=== PATIENT | male | born 1975 | race African-American/Black ===

== ENCOUNTER 2018-06-01 22:02 | Emergency (ER) | payer MEDICAID, OTHER ==
--- NOTE | 2018-06-01 22:31 | EDM.PDOC ---
ED HPI GENERAL MEDICAL PROBLEM - General Chief Complaint: Back Pain or Injury Stated Complaint: LOWER BACK PAIN Time Seen by Provider: 06/01/18 22:31 - History of Present Illness INITIAL COMMENTS - FREE TEXT/NARRATIVE: 42-year-old male presents emergency room with back pain. This pain started yesterday. The patient was working at home removing the toilet seat set the old one against the wall and when he went to pick it up he developed sudden low back pain. Patient denies any significant injuries to his back in the past. Patient has not had any loss of bowel or bladder control he has no pain extending down into his legs it is all around his low back . Lower Back Pain Score (Numeric/FACES): 8 - Related Data Allergies Allergy/AdvReac Type Severity Reaction Status Date / Time No Known Allergies Allergy Verified 06/01/18 22:16 Home Meds: Home Meds Cyclobenzaprine [Flexeril] 10 mg PO TID #15 tab 06/02/18 [Rx] Naproxen [Naprosyn] 500 mg PO Q12HR #20 tab 06/02/18 [Rx] ED ROS GENERAL - Review of Systems Review Of Systems: See Below Constitutional: Reports: No Symptoms HEENT: Reports: No Symptoms Respiratory: Reports: No Symptoms Cardiovascular: Reports: No Symptoms GI/Abdominal: Reports: No Symptoms : Reports: No Symptoms ED EXAM,LOWER BACK PAIN/INJURY - Physical Exam Exam: See Below Exam Limited By: No Limitations General Appearance: Alert, No Apparent Distress, Other (Blood pressure was elevated initially but this did come down) Head: Atraumatic, Normocephalic Neck: Normal Inspection, Supple, Non-Tender, Full Range of Motion. No: Lymphadenopathy (L), Lymphadenopathy (R) Respiratory/Chest: No Respiratory Distress, Lungs Clear, Normal Breath Sounds Cardiovascular: Regular Rate, Rhythm, No Edema, No Murmur GI/Abdominal: Normal Bowel Sounds, Soft, Non-Tender, Other (Marked obesity) Back Exam: Muscle Spasm, Paraspinal Tenderness, Other (Marked bilateral muscle spasm much worse on the left distracted straight leg raises are negative). No: Vertebral Tenderness Neurological: Alert, Normal Mood/Affect Course - Vital Signs Last Recorded V/S: Last Vital Signs Temp 36.3 C 06/01/18 22:11 Pulse 97 06/01/18 22:11 Resp 16 06/01/18 22:11 BP 162/109 H 06/01/18 22:11 Pulse Ox 93 L 06/01/18 22:11 - Orders/Labs/Meds Orders: Active Orders 24 hr Category Date Time Status Lumbar Spine 2 or 3V [CR] Stat Exams 06/01/18 23:30 Taken Meds: Medications Discontinued Medications Generic Name Dose Route Start Last Admin Trade Name Miguel PRN Reason Stop Dose Admin Cyclobenzaprine HCl 10 mg 06/01/18 23:22 06/01/18 23:48 Flexeril PO 06/01/18 23:23 10 mg ONETIME ONE Administration Ketorolac Tromethamine 60 mg 06/01/18 23:28 06/01/18 23:47 Toradol IM 06/01/18 23:29 60 mg ONETIME ONE Administration - Re-Assessments/Exams Free Text/Narrative Re-Assessment/Exam: 06/02/18 00:20 Since blood pressure was elevated on admission however one was rechecked it was 147/101 given the pain he was having a did order some Toradol for him and ordered some Flexeril he declined the Flexeril as he has to drive himself home x -ray examination was done which shows no acute fracture dislocation he has loss of lordotic curvature in the lumbar spine he has some degenerative changes noted especially at L3-L4 but he has diffuse [id number] disease throughout he has noticed some improvement with the Toradol. Departure - Departure Time of Disposition: 00:29 Disposition: Home, Self-Care 01 Clinical Impression: Low back strain, Spasm of muscle of lower back - Discharge Information Prescriptions: Naproxen [Naprosyn] 500 mg PO Q12HR #20 tab Cyclobenzaprine [Flexeril] 10 mg PO TID #15 tab Referrals: PCP,None [Primary Care Provider] - Forms: ED Department Discharge Additional Instructions: Return to the emergency room with any questions problems worsening symptoms. Take medications as directed Follow-up at the Hospital clinic on Friday or for recheck [phone] - My Orders Last 24 Hours: My Active Orders 06/01/18 23:30 Lumbar Spine 2 or 3V [CR] Stat - Assessment/Plan Last 24 Hours: My Active Orders 06/01/18 23:30 Lumbar Spine 2 or 3V [CR] Stat
[2018-06-01] MEDS ORDERED: Cyclobenzaprine 10 MG Tab PO ONE (23:22)
[2018-06-01] MEDS ORDERED: Ketorolac 60 MG/2 ML SDV IM ONE (23:28)
--- NOTE | 2018-06-02 08:18 | CR ---
Lumbar Spine : AP and lateral views of the lumbar spine were obtained. Comparison: No previous study. Mild disc space narrowing is noted at L3-L4 with minimal retrolisthesis. Anterior osteophytes are also noted at L3-L4. Other disc spaces and vertebral body heights are maintained. Pedicles are intact. Visualized transverse and spinous processes are intact. Sacroiliac joints are within normal limits. Minimal scoliosis is present. Impression: 1. Degenerative change at L3-L4 as noted above. 2. Minimal scoliosis. Diagnostic code #2
== END 2018-06-02 00:42 | disposition home or self-care (01) ==
LOC: JD.ED 22:02
DX: S39.012A Strain of muscle, fascia and tendon of lower back, initial encounter (principal); M62.830 Muscle spasm of back; X50.1XXA Overexertion from prolonged static or awkward postures, initial encounter; Y92.002 Bathroom of unspecified non-institutional (private) residence as the place of occurrence of the external cause
CPT/HCPCS: 72100; 96372; 99283; A9270; J1885

== ENCOUNTER 2018-07-27 15:20 | Emergency (ER) | payer MEDICAID ==
--- NOTE | 2018-07-27 16:23 | EDM.PDOCBH ---
ED HPI GENERAL MEDICAL PROBLEM - General Chief Complaint: Behavioral/Psych Stated Complaint: MENTAL EVALUATION Time Seen by Provider: 07/27/18 15:25 Source of Information: Reports: Patient History Limitations: Reports: Altered Mental Status - History of Present Illness INITIAL COMMENTS - FREE TEXT/NARRATIVE: 43-year-old male with a reported past psychiatric history of schizophrenia. Patient is poor and unreliable historian. He states that he is being followed by 2 people one in a light blue truck and one in a car. He thinks they are currently in the ER posing as patients and are trying to kill them with guns. He says he will fight for his life if necessary. He states he called 911 several times, LE asked him to come to the ED for evaluation. Informed by nursing staff the patient states he ran here to the hospital. The patient does state that he previously received psychiatric care. States the last time he was on any psychiatric medicines was quite some time ago possibly a year ago. States that he used to take gabapentin, Seroquel, ziprasidone and Xanax. Patient states that he last used drugs probably 3 days ago. - Related Data Allergies Allergy/AdvReac Type Severity Reaction Status Date / Time No Known Allergies Allergy Verified 07/27/18 15:31 Home Meds: Home Meds . [No Known Home Meds] 07/27/18 [History] Past Medical History Neurological History: Reports: Other (See Below) Other Neuro History: [place] Psychiatric History: Reports: Anxiety, Depression, Hallucinations, Schizophrenia - Past Surgical History Musculoskeletal Surgical History: Reports: Other (See Below) Other Musculoskeletal Surgeries/Procedures:: left arm abscess Social & Family History - Family History Family Medical History: Noncontributory - Tobacco Use Smoking Status *Q: Current Every Day Smoker Years of Tobacco use: 9 Packs/Tins Daily: 0.5 - Caffeine Use Caffeine Use: Reports: Coffee, Energy Drinks, Soda - Recreational Drug Use Recreational Drug Use: No ED ROS GENERAL - Review of Systems Review Of Systems: See Below Constitutional: Reports: No Symptoms HEENT: Reports: No Symptoms Respiratory: Reports: No Symptoms Cardiovascular: Reports: No Symptoms GI/Abdominal: Reports: No Symptoms : Reports: No Symptoms Skin: Reports: No Symptoms Neurological: Reports: No Symptoms Psychiatric: Reports: Agitation, Anxiety, Hallucinations ED EXAM, BEHAVIORAL HEALTH - Physical Exam Exam: See Below Exam Limited By: Altered Mental Status General Appearance: Alert, Anxious, Obese Nose: Normal Inspection Throat/Mouth: Normal Inspection Head: Atraumatic, Normocephalic Neck: Normal Inspection Respiratory/Chest: No Respiratory Distress, Lungs Clear, Normal Breath Sounds Cardiovascular: Normal Peripheral Pulses, Regular Rate, Rhythm GI/Abdominal: Normal Bowel Sounds, Soft, Non-Tender Extremities: Normal Inspection, Normal Range of Motion, Non-Tender Neurological: Alert, CN II-XII Intact, No Motor/Sensory Deficits, Oriented x 3 Psychiatric: Restless, Poor Eye Contact (paranoid delusions, visual hallucinations), Uncooperative, Paranoid Thoughts, Other (paranoid delusions, people trying to kill him, disorganized behavior) Skin Exam: Warm, Dry, Intact COURSE, BEHAVIORAL HEALTH COMP - Course Vital Signs: Last Vital Signs Temp 35.9 C 07/27/18 15:27 Pulse 125 H 07/27/18 15:27 Resp 20 07/27/18 15:27 BP 155/120 H 07/27/18 15:27 Pulse Ox 96 07/27/18 15:27 Orders, Labs, Meds: Active Orders 24 hr Category Date Time Status DRUG SCREEN, URINE [URCHEM] Stat Lab 07/27/18 16:10 Ordered Laboratory Tests 07/27/18 07/27/18 07/27/18 Range/Units 15:50 15:50 15:50 WBC 6.06 (4.23-9.07) K/mm3 RBC 5.79 (4.63-6.08) M/mm3 Hgb 17.7 H (13.7-17.5) gm/L Hct 51.9 H (40.1-51.0) % MCV 89.6 (79.0-92.2) fl MCH 30.6 (25.7-32.2) pg MCHC 34.1 (32.2-35.5) g/dl RDW Std Deviation 46.3 H (35.1-43.9) fL Plt Count 270 (163-337) K/mm3 MPV 9.2 L (9.4-12.3) fl Neut % (Auto) 51.4 (34.0-67.9) % Lymph % (Auto) 34.3 (21.8-53.1) % [place] % (Auto) 12.0 (5.3-12.2) % Eos % (Auto) 1.8 (0.8-7.0) Baso % (Auto) 0.3 (0.1-1.2) % Neut # (Auto) 3.11 (1.78-5.38) K/mm3 Lymph # (Auto) 2.08 (1.32-3.57) K/mm3 [place] # (Auto) 0.73 (0.30-0.82) K/mm3 Eos # (Auto) 0.11 (0.04-0.54) K/mm3 Baso # (Auto) 0.02 (0.01-0.08) K/mm3 Sodium 143 (136-145) mEq/L Potassium 3.4 L (3.5-5.1) mEq/L Chloride 106 (98-107) mEq/L Carbon Dioxide 25 (21-32) mEq/L Anion Gap 15.4 H (5-15) BUN 10 (7-18) mg/dL Creatinine 1.4 H (0.7-1.3) mg/dL Est Cr Clr Drug Dosing 80.48 mL/min Estimated GFR (MDRD) > 60 (>60) mL/min BUN/Creatinine Ratio 7.1 L (14-18) Glucose 107 H (74-106) mg/dL Calcium 9.4 (8.5-10.1) mg/dL Total Bilirubin 0.9 (0.2-1.0) mg/dL AST 32 (15-37) U/L ALT 96 H (16-63) U/L Alkaline Phosphatase 46 (46-116) U/L Total Protein 8.4 H (6.4-8.2) g/dl Albumin 4.3 (3.4-5.0) g/dl Globulin 4.1 gm/dL Albumin/Globulin Ratio 1.1 (1-2) Salicylates 4.6 (2.8-20) mg/dL Urine Opiates Screen (NEGATIVE) Ur Buprenorphine Scrn (NEGATIVE) Ur Oxycodone Screen (NEGATIVE) Urine Methadone Screen (NEGATIVE) Ur Propoxyphene Screen (NEGATIVE) Acetaminophen 0 L (10-30) ug/mL Ur Barbiturates Screen (NEGATIVE) Ur Tricyclics Screen (NEGATIVE) Ur Phencyclidine Scrn (NEGATIVE) Ur Amphetamine Screen (NEGATIVE) U Methamphetamines Scrn (NEGATIVE) U Benzodiazepines Scrn (NEGATIVE) U Cocaine Metab Screen (NEGATIVE) U Marijuana (THC) Screen (NEGATIVE) Ethyl Alcohol 0.00 (0.00) gm% 07/27/18 Range/Units 16:10 WBC (4.23-9.07) K/mm3 RBC (4.63-6.08) M/mm3 Hgb (13.7-17.5) gm/L Hct (40.1-51.0) % MCV (79.0-92.2) fl MCH (25.7-32.2) pg MCHC (32.2-35.5) g/dl RDW Std Deviation (35.1-43.9) fL Plt Count (163-337) K/mm3 MPV (9.4-12.3) fl Neut % (Auto) (34.0-67.9) % Lymph % (Auto) (21.8-53.1) % [place] % (Auto) (5.3-12.2) % Eos % (Auto) (0.8-7.0) Baso % (Auto) (0.1-1.2) % Neut # (Auto) (1.78-5.38) K/mm3 Lymph # (Auto) (1.32-3.57) K/mm3 [place] # (Auto) (0.30-0.82) K/mm3 Eos # (Auto) (0.04-0.54) K/mm3 Baso # (Auto) (0.01-0.08) K/mm3 Sodium (136-145) mEq/L Potassium (3.5-5.1) mEq/L Chloride (98-107) mEq/L Carbon Dioxide (21-32) mEq/L Anion Gap (5-15) BUN (7-18) mg/dL Creatinine (0.7-1.3) mg/dL Est Cr Clr Drug Dosing mL/min Estimated GFR (MDRD) (>60) mL/min BUN/Creatinine Ratio (14-18) Glucose (74-106) mg/dL Calcium (8.5-10.1) mg/dL Total Bilirubin (0.2-1.0) mg/dL AST (15-37) U/L ALT (16-63) U/L Alkaline Phosphatase (46-116) U/L Total Protein (6.4-8.2) g/dl Albumin (3.4-5.0) g/dl Globulin gm/dL Albumin/Globulin Ratio (1-2) Salicylates (2.8-20) mg/dL Urine Opiates Screen Negative (NEGATIVE) Ur Buprenorphine Scrn Negative (NEGATIVE) Ur Oxycodone Screen Negative (NEGATIVE) Urine Methadone Screen Negative (NEGATIVE) Ur Propoxyphene Screen Negative (NEGATIVE) Acetaminophen (10-30) ug/mL Ur Barbiturates Screen Negative (NEGATIVE) Ur Tricyclics Screen Negative (NEGATIVE) Ur Phencyclidine Scrn Negative (NEGATIVE) Ur Amphetamine Screen Presumptive positive H (NEGATIVE) U Methamphetamines Scrn Presumptive positive H (NEGATIVE) U Benzodiazepines Scrn Negative (NEGATIVE) U Cocaine Metab Screen Negative (NEGATIVE) U Marijuana (THC) Screen Negative (NEGATIVE) Ethyl Alcohol (0.00) gm% Medications Discontinued Medications Generic Name Dose Route Start Last Admin Trade Name Freq PRN Reason Stop Dose Admin Haloperidol Lactate Confirm 07/27/18 19:17 Haldol Administered 07/27/18 19:18 Dose 5 mg .ROUTE .STK-MED ONE Lorazepam Confirm 07/27/18 19:23 Ativan Administered 07/27/18 19:24 Dose 2 mg .ROUTE .STK-MED ONE Midazolam HCl Confirm 07/27/18 19:18 Versed 5 Mg/Ml Administered 07/27/18 19:19 Dose 25 mg .ROUTE .STK-MED ONE Re-Assessment/Re-Exam: 43 y M self-reported hx of schizophrenia presenting with paranoid delusions. On initial exam the patient was hiding in the corner of the room behind the door. He was slightly tachycardic with regular rhythm. Physical exam unremarkable otherwise. He did have paranoid delusions of people trying to kill him, that they followed him into the ED posing as patients and that he would try to hurt them "if they make a move." CMP and CBC notable only for mild Cr elevation likely from dehydration. ASA, APAP levels negative. Negative etoh. Urine drug screen positive for amphetamines only. I feel the patient poses a danger to others in his current paranoid state and as such should be admitted for emergent psychiatric stabilization as an inpatient. Spoke with Dr. Parker at [facility] who had an open bed and would accept the transfer should the patient be able to come over in a timely transfer. Necessary forms filled out and faxed over. Awaiting [facility] Department transportation. [facility]'s department arrived and the patient became more agitated, making threatening comments and gestures to staff and law enforcement. He remained acutely psychotic and posed a clear danger to others. He refused to go to [place] because he believed the people trying to kill him would try to kill him there. Haldol and ativan IM were drawn up but the patient complied with law enforcement and was placed in their vehicle. Corrections were made to paperwork and refaxed to [facility]. Departure - Departure Time of Disposition: 18:28 Disposition: DC/Tfer to Psych Hosp/Unit 65 Condition: Fair Clinical Impression: Paranoid delusion Psychosis Qualifiers: Psychosis type: other Qualified Code(s): F28 - Other psychotic disorder not due to a substance or known physiological condition - Discharge Information *PRESCRIPTION DRUG MONITORING PROGRAM REVIEWED*: No *COPY OF PRESCRIPTION DRUG MONITORING REPORT IN PATIENT MATHEW: No Referrals: PCP,None [Primary Care Provider] - Forms: Interfacility Transfer EMTALA - My Orders Last 24 Hours: My Active Orders 07/27/18 16:10 DRUG SCREEN, URINE [URCHEM] Stat - Assessment/Plan Last 24 Hours: My Active Orders 07/27/18 16:10 DRUG SCREEN, URINE [URCHEM] Stat
[2018-07-27 16:30] LABS: ACETAMINOPHEN 0 ug/mL (10-30)
[2018-07-27] MEDS ORDERED: Haloperidol Lactate 5 MG/ML SDV ONE (19:17)
[2018-07-27] MEDS ORDERED: Midazolam 5 MG/ML 5 ML MDV ONE (19:18)
[2018-07-27] MEDS ORDERED: LORazepam 2 MG/ML SDV ONE (19:23)
== END 2018-07-27 20:00 ==
LOC: JD.ED 15:20
DX: F22 Delusional disorders (principal); F28 Other psychotic disorder not due to a substance or known physiological condition; F17.210 Nicotine dependence, cigarettes, uncomplicated
CPT/HCPCS: 36415; 80053; 80306; 85025; 99285; G0480

== ENCOUNTER 2019-04-03 13:26 | Emergency (ER) | payer SELFPAY ==
[2019-04-03] MEDS ORDERED: Lidocaine 1% 50 ML MDV INJECT ONE (13:39)
[2019-04-03] MEDS ORDERED: Bupivacaine 0.25% 10 ML SDV INJECT ONE (13:39)
[2019-04-03] MEDS ORDERED: Diphtheria,Pertussis(Acell),Tetanus Vaccine 0.5 ML Syringe IM ONE (13:40)
[2019-04-03] MEDS ORDERED: Bupivacaine 0.5%/EPINEPHrine 1:200,000 30 ML SDV INJECT ONE (14:01)
[2019-04-03] MEDS ORDERED: Bupivacaine 0.5% 10 ML SDV INJECT ONE (14:04)
--- NOTE | 2019-04-03 14:26 | EDM.PDOC ---
ED HPI GENERAL MEDICAL PROBLEM - General Chief Complaint: Laceration Stated Complaint: LEFT THUMB INJURY Time Seen by Provider: 04/03/19 13:43 Source of Information: Reports: Patient History Limitations: Reports: No Limitations - History of Present Illness INITIAL COMMENTS - FREE TEXT/NARRATIVE: 43-year-old male presents for evaluation and treatment of an injury to the left thumb. Injury occurred prior to arrival in the ER. Patient reports that his thumb was caught in a winch. He was helping someone move. He states that he pulled on the thumb out causing a laceration to the left distal thumb. Reports numbness and tingling associated with the area. Reports Significant pain. Decreased ROM due to pain and swelling. He is unaware of his last tetanus. Patient is right-handed. Onset: Today, Sudden Location: Reports: Upper Extremity, Left Left Hand Pain Score (Numeric/FACES): 10 - Related Data Allergies Allergy/AdvReac Type Severity Reaction Status Date / Time No Known Allergies Allergy Verified 04/03/19 13:37 Home Meds: Home Meds . [No Known Home Meds] 07/27/18 [History] Past Medical History - Past Health History Medical/Surgical History: Denies Medical/Surgical History Neurological History: Reports: Other (See Below) Other Neuro History: [place] Psychiatric History: Reports: Anxiety, Depression, Hallucinations, Schizophrenia - Past Surgical History Musculoskeletal Surgical History: Reports: Other (See Below) Other Musculoskeletal Surgeries/Procedures:: left arm abscess Social & Family History - Family History Family Medical History: Noncontributory - Tobacco Use Smoking Status *Q: Heavy Tobacco Smoker Years of Tobacco use: 3 Packs/Tins Daily: 1 - Caffeine Use Caffeine Use: Reports: None ED ROS GENERAL - Review of Systems Review Of Systems: See Below Musculoskeletal: Reports: Hand Pain (left hand thumb) Skin: Reports: Wound (left hand thumb) Neurological: Reports: Numbness (left thumb), Tingling (left thumb) ED EXAM, SKIN/RASH Exam: See Below Exam Limited By: No Limitations General Appearance: Alert, WD/WN, Moderate Distress, Obese Respiratory/Chest: No Respiratory Distress Cardiovascular: Normal Peripheral Pulses Peripheral Pulses: 2+: Radial (L) Extremities: Other (lacertion to the left distal thumb on the radial side of the distal left hand) Neurological: Alert, Oriented, Normal Cognition Psychiatric: Normal Affect, Normal Mood Skin: Warm, Dry, Normal Color Location, Skin: Upper Extremity, Left Characteristics: Other (1cm laceration to juan jose left hand distal ventral thumb, 3cm laceration to juan jose left hand dital thumb entending throught the nail bed) ED SKIN PROCEDURES - Laceration/Wound Repair Left Distal Ventral Digit - 1st (Thumb) Lac/Wound length In cm: 1 Appearance: Superficial, Linear, Mildly Contaminated Distal NVT: Neuro & Vascular Intact, No Tendon Injury Anesthetic Type: Local Local Anesthesia - Lidocaine (Xylocaine): 1% Plain Local Anesthesia - Bupivicaine (Marcaine): 0.5% Plain Local Anesthetic Volume: 1cc Skin Prep: Chlorhexidine (Hibiciens), Saline, Sterile Drape Closed with: Sutures Suture Size: 4-0 # of Sutures: 3 Suture Type: Silk, Interrupted, Simple Sterile Dressing Applied: Nurse Tetanus Status Addressed: Yes Complications: No Left Lateral Distal Digit - 1st (Thumb) Lac/Wound length In cm: 3 Appearance: Subcutaneous, Irregular, Mildly Contaminated Distal NVT: Neuro & Vascular Intact, No Tendon Injury Anesthetic Type: Digital Local Anesthesia - Lidocaine (Xylocaine): 1% Plain Local Anesthesia - Bupivicaine (Marcaine): 0.5% Plain Local Anesthetic Volume: Other (6cc) Skin Prep: Chlorhexidine (Hibiciens), Saline, Sterile Drape Closed with: Sutures Suture Size: 4-0 # of Sutures: 9 Suture Type: Silk, Interrupted, Simple Sterile Dressing Applied: Nurse Tetanus Status Addressed: Yes Complications: No Course - Vital Signs Last Recorded V/S: Last Vital Signs Temp 97.7 F 04/03/19 13:40 Pulse 100 04/03/19 13:40 Resp 20 04/03/19 13:40 BP 106/69 04/03/19 13:40 Pulse Ox 100 04/03/19 13:40 - Orders/Labs/Meds Orders: Active Orders 24 hr Category Date Time Status Vaccines to be Administered [RC] PER UNIT ROUTINE Care 04/03/19 13:40 Active Fingers Thumb Lt FA [CR] Stat Exams 04/03/19 13:40 Taken Meds: Medications Discontinued Medications Generic Name Dose Route Start Last Admin Trade Name Freq PRN Reason Stop Dose Admin Bupivacaine HCl 10 ml 04/03/19 14:04 04/03/19 14:05 Sensorcaine-Mpf 0.5% INJECT 04/03/19 14:05 1 ml ONETIME ONE Administration Bupivacaine HCl/Epinephrine Bitart 30 ml 04/03/19 14:01 04/03/19 14:05 Marcaine 0.5%/Epinephrine 1:200,000 INJECT 04/03/19 14:02 Not Given ONETIME ONE Diphtheria/Tetanus/Acell Pertussis 0.5 ml 04/03/19 13:40 04/03/19 13:56 Adacel IM 04/03/19 13:41 0.5 ml .ONCE ONE Administration Lidocaine HCl 50 ml 04/03/19 13:39 04/03/19 13:59 Xylocaine 1% INJECT 04/03/19 13:40 50 ml ONETIME ONE Administration - Radiology Interpretation Free Text/Narrative:: xray of the left thumb shows a tuft fracture of the distal phalnex - Re-Assessments/Exams Free Text/Narrative Re-Assessment/Exam: 04/03/19 15:03 Reviewed xray results with the patient. Wound washed and irrigated. Will place on cephalexin as this is an open fracture. 12 sutures placed in total to the 2 wounds. 4 sutures placed through the nail to help hold the nail in place. Tetanus up dated. Will discharge home at this time, discharge instructions as documented. Departure - Departure Time of Disposition: 15:09 Disposition: Home, Self-Care 01 Condition: Fair Clinical Impression: Laceration, Open fracture of tuft of distal phalanx of finger - Discharge Information *PRESCRIPTION DRUG MONITORING PROGRAM REVIEWED*: No *COPY OF PRESCRIPTION DRUG MONITORING REPORT IN PATIENT MATHEW: No Instructions: Laceration Care, Adult, [id number] Referrals: PCP,None [Primary Care Provider] - Mikey Gutierrez MD [Physician] - Forms: ED Department Discharge Additional Instructions: Percocet 5-325mg tabs 1-2 tabs PO every 4-6 hours prn pain #20 Cephalexin 1 cap PO tid x 7 days Rx given from [facility] Follow-up with ortho this week. Recommend Dr. Gutierrez or Dr. Ba at [place]. Call [phone] Gutierrez. Call [phone] Ba. Your tetanus was updated today. This is good for the next 10 years. Take the cephalexin as prescribed 1 cap PO tid x 7 days. Take OTC tylenol or motrin as needed for pain. Do not take more than 3200mg of ibuprofen from all sources in one day. Do not take more than 4gram of tylenol from all sources in one day. For pain not relieved by tylenol or motrin may take percocet 1-2 tabs PO every 4-6 hours prn pain. Do not drive or operate machinery wihtin 8 hours of taking narcotics. Percocet is habit forming, take as few of these as needed to control your pain. Keep the splint on for protection and immobilization. Have the sutures removed in 10-14 days. Please return to the ER should your symptoms change or worsen. - My Orders Last 24 Hours: My Active Orders 04/03/19 13:40 Vaccines to be Administered [RC] PER UNIT ROUTINE Fingers Thumb Lt FA [CR] Stat - Assessment/Plan Last 24 Hours: My Active Orders 04/03/19 13:40 Vaccines to be Administered [RC] PER UNIT ROUTINE Fingers Thumb Lt FA [CR] Stat
--- NOTE | 2019-04-05 06:35 | CR ---
Left thumb: Three views centered to the left thumb were obtained. Comparison: No prior thumb study. Slightly comminuted tuft fracture is noted within the distal left thumb. Soft tissue swelling is identified. No additional fracture or other bony abnormality is identified. Impression: 1. Tuft fracture with soft tissue swelling. Diagnostic code #3
== END 2019-04-03 15:20 | disposition home or self-care (01) ==
LOC: JD.ED 13:26
DX: S62.522B Displaced fracture of distal phalanx of left thumb, initial encounter for open fracture (principal); Z23 Encounter for immunization; F17.210 Nicotine dependence, cigarettes, uncomplicated; W23.1XXA Caught, crushed, jammed, or pinched between stationary objects, initial encounter
CPT/HCPCS: 12002; 73140; 90471; 90700; 99283; J2001; J3490

== ENCOUNTER 2019-04-14 22:37 | Emergency (ER) | payer MEDICAID ==
--- NOTE | 2019-04-14 23:59 | EDM.PDOCBH ---
ED HPI GENERAL MEDICAL PROBLEM - General Chief Complaint: Behavioral/Psych Stated Complaint: MENTAL EVAL Time Seen by Provider: 04/14/19 23:38 Source of Information: Reports: Patient, RN Notes Reviewed History Limitations: Reports: No Limitations - History of Present Illness INITIAL COMMENTS - FREE TEXT/NARRATIVE: The patient states that he has a history of schizophrenia, diagnosed when he was 12 or 13 years old. He has taken psychiatric medications in the past, but none since about November of this year. He was hospitalized at [facility] in July 2018, and transferred to a long-term facility where he stayed for 4 -5 months. He was hospitalized at the [facility] in [place] in October or November, where he stayed for about 30 days. The patient states that he was jailed this past 04/10/2019, after he "freaked out" - a term he uses for auditory hallucinations - at [facility]. He states that he was apparently flashing knives and threatening customers, and the police found knives on him. He states that [facility] this [facility]. He now presents to the ED stating that he is freaking out again. He hears voices saying "Protect yourself", and "If somebody comes close, stab them". The patient feels that he requires psychiatric hospitalization again. Medical records indicate that the patient was seen in this ED on 04/03/2019, after his left thumb got crushed in the lift gate. He received numerous sutures to the thumb, which appear to be ready for removal. The patient does not have a PCP or Psychiatrist. - Related Data Allergies Allergy/AdvReac Type Severity Reaction Status Date / Time No Known Allergies Allergy Verified 04/03/19 13:37 Home Meds: Home Meds . [No Known Home Meds] 07/27/18 [History] Past Medical History Neurological History: Reports: Other (See Below) ([place] 2015) Psychiatric History: Reports: Anxiety (untreated), Depression (untreated), Schizophrenia (untreated) Endocrine/Metabolic History: Reports: Obesity/BMI 30+ - Past Surgical History Dermatological Surgical History: Reports: Other (See Below) (Left arm abscess I & D) Social & Family History - Family History Family Medical History: Noncontributory - Tobacco Use Smoking Status *Q: Current Every Day Smoker Years of Tobacco use: 27 Packs/Tins Daily: 0.5 - Caffeine Use Caffeine Use: Reports: Coffee, Soda, Tea - Alcohol Use Alcohol Use History: Yes Alcohol Use Frequency: Socially - Recreational Drug Use Recreational Drug Use: Yes Drug Use in Last 12 Months: Yes Recreational Drug Type: Reports: Marijuana/Hashish (last smoked 04/13/2019), Methamphetamine (last injected 04/09/2019) - Living Situation & Occupation Living situation: Reports: Single, Other (Homeless) Occupation: Unemployed ED ROS GENERAL - Review of Systems Review Of Systems: ROS reveals no pertinent complaints other than HPI. ED EXAM, BEHAVIORAL HEALTH - Physical Exam Exam: See Below Exam Limited By: No Limitations General Appearance: Alert, WD/WN, No Apparent Distress Eye Exam: Bilateral Eye: EOMI, Normal Inspection Ears: Normal External Exam, Hearing Grossly Normal Nose: Normal Inspection Throat/Mouth: Normal Inspection, Normal Lips, Normal Voice, No Airway Compromise Head: Atraumatic, Normocephalic Neck: Normal Inspection, Full Range of Motion Respiratory/Chest: No Respiratory Distress, Lungs Clear, Normal Breath Sounds, No Accessory Muscle Use Cardiovascular: Normal Peripheral Pulses, Regular Rate, Rhythm, No Edema, No Gallop, No JVD, No Murmur, No Rub GI/Abdominal: Normal Bowel Sounds, Soft, Non-Tender, No Organomegaly, No Distention, No Abnormal Bruit, No Mass, Other (Obese) (Male) Exam: Deferred Rectal (Males) Exam: Deferred Back Exam: Normal Inspection, Full Range of Motion, NT Extremities: Normal Inspection, Normal Range of Motion, No Pedal Edema, Normal Capillary Refill Neurological: Alert, No Motor/Sensory Deficits, Oriented x 3 Psychiatric: Normal Affect, Auditory Hallucinations Skin Exam: Warm, Dry, Intact, Normal color, No rash EKG INTERPRETATION EKG Date: 04/15/19 Time: 00:07 Rhythm: NSR Rate (Beats/Min): 67 [place]: Normal P-Wave: Enlarged (LAE) QRS: Normal ST-T: Normal (J-point elevation, but no T-wave inversions) QT: Normal Comparison: NA - No Prior EKG COURSE, BEHAVIORAL HEALTH COMP - Course Vital Signs: Last Vital Signs Temp 36.8 C 04/14/19 23:01 Pulse 82 04/14/19 23:01 Resp 20 04/14/19 23:01 BP 142/96 H 04/14/19 23:01 Pulse Ox 99 04/14/19 23:01 Orders, Labs, Meds: Active Orders 24 hr Category Date Time Status EKG Documentation Completion [RC] STAT Care 04/14/19 23:57 Active Laboratory Tests 04/15/19 04/15/19 04/15/19 Range/Units 00:10 00:10 00:10 WBC 4.98 (4.23-9.07) K/mm3 RBC 5.35 (4.63-6.08) M/mm3 Hgb 16.3 (13.7-17.5) gm/L Hct 47.6 (40.1-51.0) % MCV 89.0 (79.0-92.2) fl MCH 30.5 (25.7-32.2) pg MCHC 34.2 (32.2-35.5) g/dl RDW Std Deviation 44.9 H (35.1-43.9) fL Plt Count 273 (163-337) K/mm3 MPV 9.5 (9.4-12.3) fl Neutrophils % (Manual) 42 (40-60) % Band Neutrophils % 0 (0-10) % Lymphocytes % (Manual) 46 H (20-40) % Atypical Lymphs % 0 % Monocytes % (Manual) 8 (2-10) % Eosinophils % (Manual) 4 (0.8-7.0) % Basophils % (Manual) 0 L (0.2-1.2) Platelet Estimate Adequate RBC Morph Comment Normal Sodium 139 (136-145) mEq/L Potassium 3.5 (3.5-5.1) mEq/L Chloride 104 (98-107) mEq/L Carbon Dioxide 26 (21-32) mEq/L Anion Gap 12.5 (5-15) BUN 13 (7-18) mg/dL Creatinine 1.1 (0.7-1.3) mg/dL Est Cr Clr Drug Dosing 99.64 mL/min Estimated GFR (MDRD) > 60 (>60) mL/min BUN/Creatinine Ratio 11.8 L (14-18) Glucose 116 H (74-106) mg/dL Calcium 9.1 (8.5-10.1) mg/dL Total Bilirubin 0.3 (0.2-1.0) mg/dL AST 52 H (15-37) U/L ALT 124 H (16-63) U/L Alkaline Phosphatase 46 (46-116) U/L Total Protein 7.5 (6.4-8.2) g/dl Albumin 3.6 (3.4-5.0) g/dl Globulin 3.9 gm/dL Albumin/Globulin Ratio 0.9 L (1-2) TSH 3rd Generation 3.535 (0.358-3.74) uIU/mL Salicylates (2.8-20) mg/dL Urine Opiates Screen Negative (QXLCZW=185) Ur Buprenorphine Scrn Negative (CUTOFF=10) Ur Oxycodone Screen Negative (TGA8XA=861) Urine Methadone Screen Negative (GPR4NX=283) Ur Propoxyphene Screen Negative (STJYEZ=898) Acetaminophen 0 L (10-30) ug/mL Ur Barbiturates Screen Negative (CHBQPJ=293) Ur Tricyclics Screen Negative (NZTMCO=962) Ur Phencyclidine Scrn Negative (CUTOFF=25) Ur Amphetamine Screen Negative (GAUSUB=624) U Methamphetamines Scrn Presumptive positive H (UNFBAE=756) U Benzodiazepines Scrn Negative (QRWIMT=770) U Cocaine Metab Screen Negative (QQKQVA=673) U Marijuana (THC) Screen Negative (CUTOFF=50) Ethyl Alcohol 0.00 (0.00) gm% 04/15/19 Range/Units 00:10 WBC (4.23-9.07) K/mm3 RBC (4.63-6.08) M/mm3 Hgb (13.7-17.5) gm/L Hct (40.1-51.0) % MCV (79.0-92.2) fl MCH (25.7-32.2) pg MCHC (32.2-35.5) g/dl RDW Std Deviation (35.1-43.9) fL Plt Count (163-337) K/mm3 MPV (9.4-12.3) fl Neutrophils % (Manual) (40-60) % Band Neutrophils % (0-10) % Lymphocytes % (Manual) (20-40) % Atypical Lymphs % % Monocytes % (Manual) (2-10) % Eosinophils % (Manual) (0.8-7.0) % Basophils % (Manual) (0.2-1.2) Platelet Estimate RBC Morph Comment Sodium (136-145) mEq/L Potassium (3.5-5.1) mEq/L Chloride (98-107) mEq/L Carbon Dioxide (21-32) mEq/L Anion Gap (5-15) BUN (7-18) mg/dL Creatinine (0.7-1.3) mg/dL Est Cr Clr Drug Dosing mL/min Estimated GFR (MDRD) (>60) mL/min BUN/Creatinine Ratio (14-18) Glucose (74-106) mg/dL Calcium (8.5-10.1) mg/dL Total Bilirubin (0.2-1.0) mg/dL AST (15-37) U/L ALT (16-63) U/L Alkaline Phosphatase (46-116) U/L Total Protein (6.4-8.2) g/dl Albumin (3.4-5.0) g/dl Globulin gm/dL Albumin/Globulin Ratio (1-2) TSH 3rd Generation (0.358-3.74) uIU/mL Salicylates 3.2 (2.8-20) mg/dL Urine Opiates Screen (HEJOWW=016) Ur Buprenorphine Scrn (CUTOFF=10) Ur Oxycodone Screen (ZZJ4RT=781) Urine Methadone Screen (PKT1OZ=579) Ur Propoxyphene Screen (ZPSCNL=560) Acetaminophen (10-30) ug/mL Ur Barbiturates Screen (LMYSVB=103) Ur Tricyclics Screen (TSCJEJ=483) Ur Phencyclidine Scrn (CUTOFF=25) Ur Amphetamine Screen (LWVDIP=434) U Methamphetamines Scrn (GRSTRV=274) U Benzodiazepines Scrn (XXKOIO=283) U Cocaine Metab Screen (UVZERZ=285) U Marijuana (THC) Screen (CUTOFF=50) Ethyl Alcohol (0.00) gm% Medical Clearance: 04/14/19 23:57 The patient appears to be acutely psychotic, suffering from auditory hallucinations telling him to harm others. I believe he requires psychiatric hospitalization. I have ordered a psychiatric medical clearance panel. In the meantime, we will see if we can find him something to eat. 04/15/19 02:05 The patient's medical clearance evaluation is unremarkable, with the exception that his urine drug screen is positive for methamphetamine. 04/15/19 03:[address] Clark, psychiatrist at [facility], at 03:18. He accepted the patient for direct admission to the psychiatric unit, for a diagnosis of schizophrenia. The patient will have to be transported by the [facility]'s department. I will fill out a 24-hour hold. Departure - Departure Time of Disposition: 03:23 Disposition: DC/Tfer to Psych Hosp/Unit 65 Condition: Good Clinical Impression: Schizophrenia, Auditory hallucinations - Discharge Information *PRESCRIPTION DRUG MONITORING PROGRAM REVIEWED*: Not Applicable *COPY OF PRESCRIPTION DRUG MONITORING REPORT IN PATIENT MATHEW: Not Applicable Referrals: PCP,None [Primary Care Provider] - Forms: ED Department Discharge - My Orders Last 24 Hours: My Active Orders 04/14/19 23:57 EKG Documentation Completion [RC] STAT - Assessment/Plan Last 24 Hours: My Active Orders 04/14/19 23:57 EKG Documentation Completion [RC] STAT
[2019-04-15 00:58] LABS: ACETAMINOPHEN 0 ug/mL (10-30)
[2019-04-15] MEDS ORDERED: Ibuprofen 600 MG Tab PO ONE (06:55)
== END 2019-04-15 08:55 ==
LOC: JD.ED 22:37
DX: F20.9 Schizophrenia, unspecified (principal); F17.210 Nicotine dependence, cigarettes, uncomplicated; F41.9 Anxiety disorder, unspecified; F32.9 Major depressive disorder, single episode, unspecified
CPT/HCPCS: 36415; 80053; 80306; 84443; 85007; 85027; 93005; 99285; A9270; G0480; 93010; 99283

== ENCOUNTER 2019-05-19 07:46 | Inpatient (IN) | payer SELFPAY ==
[2019-05-19] MEDS ORDERED: Sodium Chloride 0.9% 10 ML Syringe FLUSH PRN (07:56)
[2019-05-19] MEDS ORDERED: Sodium Chloride 0.9% 1,000 ML IV SCH ×2 (08:00→10:15)
[2019-05-19] MEDS ORDERED: Naloxone 2 MG/2 ML Syringe IVPUSH ONE ×3 (08:04→08:50)
--- NOTE | 2019-05-19 08:05 | EDM.PDOC ---
ED HPI GENERAL MEDICAL PROBLEM - General Chief Complaint: Behavioral/Psych Stated Complaint: [facility] Time Seen by Provider: 05/19/19 07:50 Source of Information: Reports: Patient, RN Notes Reviewed - History of Present Illness INITIAL COMMENTS - FREE TEXT/NARRATIVE: 43-year-old male has been brought in by EMS found unresponsive in the hallway of a local motel. He told EMS that he had taken about 100 pills or tablets of Wellbutrin, Zyprexa and Haldol. He told EMS he was "trying to kill himself". Because he was out in the hallway they did not get into his room and do not have bottles of his prescribed medications. No other information available at time of arrival. Vital to ED patient is very drowsy. He does answer questions but his speech is limited to mumbling answers for me very hard to understand. He does confirm that he did take Wellbutrin Zyprexa and Haldol. Cannot or will not states the time that he took those medications. Denies chest or abdominal pain. Denies feeling short of breath. Denies headache or head injury. - Related Data Allergies Allergy/AdvReac Type Severity Reaction Status Date / Time No Known Allergies Allergy Verified 05/19/19 08:06 Home Meds: Home Meds . [Unable to Verify Home Med List] 05/19/19 [History] Past Medical History - Past Health History Medical/Surgical History: Denies Medical/Surgical History Neurological History: Reports: Other (See Below) ([place] 2015) Other Neuro History: [place] Psychiatric History: Reports: Anxiety (untreated), Depression (untreated), Schizophrenia (untreated) Endocrine/Metabolic History: Reports: Obesity/BMI 30+ - Past Surgical History Dermatological Surgical History: Reports: Other (See Below) (Left arm abscess I & D) Social & Family History - Family History Family Medical History: Noncontributory - Caffeine Use Caffeine Use: Reports: Coffee, Soda, Tea - Living Situation & Occupation Living situation: Reports: Single, Other (Homeless) Occupation: Unemployed ED ROS GENERAL - Review of Systems Review Of Systems: Unable To Obtain (Unable to obtain complete review of systems , he does answer very simple questions but as noted just mumbling, very hard to understand) Cardiovascular: Reports: Other. Denies: Chest Pain GI/Abdominal: Denies: Abdominal Pain (Denies difficulty breathing), Vomiting ( There is no report of vomiting) Neurological: Reports: Dizziness, Difficulty Walking (As noted was found lying in the hallway a motel) - Physical Exam Exam: See Below General Appearance: Other (Very drowsy on arrival to ED but does answer questions, does obey simple commands however he is just mumbling softly on arrival to ED, speech very hard to understand) Eye Exam: Bilateral Eye: PERRL (Pupils are constricted bilaterally) Throat/Mouth: Normal Inspection, Other (There is no evidence of any bleeding from the mouth or injury to the tongue) Head Exam: Atraumatic. No: Scalp Hematoma, Facial Swelling Neck: Supple Respiratory/Chest: No Respiratory Distress, Lungs Clear, Normal Breath Sounds Cardiovascular: Regular Rate, Rhythm GI/Abdominal: Soft, Non-Tender Neuro Exam (Abbreviated): No Motor/Sensory Deficits, Other (Patient is very drowsy, he does acknowledge speech, does mumble answers to questions as noted, does obey simple commands) Extremities: Normal Inspection, Normal Range of Motion Skin Exam: Warm, Dry EKG INTERPRETATION EKG Date: 05/19/19 Rhythm: NSR [place]: Normal P-Wave: Present QRS: Normal ST-T: Normal QT: Prolonged (Borderline) Course - Vital Signs Last Recorded V/S: Last Vital Signs Temp 96.9 F 05/19/19 08:03 Pulse 73 05/19/19 10:29 Resp 12 05/19/19 10:29 BP 129/76 05/19/19 10:56 Pulse Ox 98 05/19/19 10:29 - Orders/Labs/Meds Orders: Active Orders 24 hr Category Date Time Status Admission Status [Patient Status] [ADT] Routine ADT 05/19/19 10:29 Active EKG 12 Lead [EKG Documentation Completion] [RC] STAT Care 05/19/19 07:56 Active Peripheral IV Care [RC] . DIRECTED Care 05/19/19 07:57 Active Sodium Chloride 0.9% [Normal Saline] 1,000 ml Med 05/19/19 08:00 Active IV ONETIME Sodium Chloride 0.9% [Normal Saline] 1,000 ml Med 05/19/19 10:15 Active IV ONETIME Sodium Chloride 0.9% [Saline Flush] Med 05/19/19 07:56 Active 10 ml FLUSH ASDIRECTED PRN Peripheral IV Insertion Adult [OM.PC] Stat Oth 05/19/19 07:56 Ordered Medication Orders Sodium Chloride (Normal Saline) 1,000 mls @ 999 mls/hr IV ONETIME ZENON Last Admin: 05/19/19 08:15 Dose: 999 mls/hr Sodium Chloride (Normal Saline) 1,000 mls @ 999 mls/hr IV ONETIME ZENON Magnesium Sulfate 2 gm/ Premix 50 mls @ 25 mls/hr IV ONETIME ONE Stop: 05/19/19 12:43 Sodium Chloride (Saline Flush) 10 ml FLUSH ASDIRECTED PRN PRN Reason: Keep Vein Open Last Admin: 05/19/19 08:16 Dose: 10 ml Labs: Laboratory Tests 05/19/19 05/19/19 05/19/19 Range/Units 08:09 08:09 08:09 WBC 3.04 L (4.23-9.07) K/mm3 RBC 4.65 (4.63-6.08) M/mm3 Hgb 14.2 D (13.7-17.5) gm/L Hct 41.7 (40.1-51.0) % MCV 89.7 (79.0-92.2) fl MCH 30.5 (25.7-32.2) pg MCHC 34.1 (32.2-35.5) g/dl RDW Std Deviation 45.3 H (35.1-43.9) fL Plt Count 206 (163-337) K/mm3 MPV 9.3 L (9.4-12.3) fl Neut % (Auto) 42.5 (34.0-67.9) % Lymph % (Auto) 40.5 (21.8-53.1) % [place] % (Auto) 11.8 (5.3-12.2) % Eos % (Auto) 4.9 (0.8-7.0) Baso % (Auto) 0.3 (0.1-1.2) % Neut # (Auto) 1.29 L (1.78-5.38) K/mm3 Lymph # (Auto) 1.23 L (1.32-3.57) K/mm3 [place] # (Auto) 0.36 (0.30-0.82) K/mm3 Eos # (Auto) 0.15 (0.04-0.54) K/mm3 Baso # (Auto) 0.01 (0.01-0.08) K/mm3 Sodium 139 (136-145) mEq/L Potassium 3.6 (3.5-5.1) mEq/L Chloride 106 (98-107) mEq/L Carbon Dioxide 25 (21-32) mEq/L Anion Gap 11.6 (5-15) BUN 18 (7-18) mg/dL Creatinine 1.1 (0.7-1.3) mg/dL Est Cr Clr Drug Dosing 102.42 mL/min Estimated GFR (MDRD) > 60 (>60) mL/min BUN/Creatinine Ratio 16.4 (14-18) Glucose 97 (74-106) mg/dL Calcium 8.5 (8.5-10.1) mg/dL Magnesium 1.8 (1.8-2.4) mg/dl Total Bilirubin 0.4 (0.2-1.0) mg/dL AST 80 H (15-37) U/L ALT 175 H (16-63) U/L Alkaline Phosphatase 43 L (46-116) U/L Total Protein 6.9 (6.4-8.2) g/dl Albumin 3.7 (3.4-5.0) g/dl Globulin 3.2 gm/dL Albumin/Globulin Ratio 1.2 (1-2) Urine Opiates Screen (JRDRXS=872) Ur Buprenorphine Scrn (CUTOFF=10) Ur Oxycodone Screen (TRP5MM=339) Urine Methadone Screen (ZHV3AF=188) Ur Propoxyphene Screen (WJZPUT=249) Acetaminophen 0 L (10-30) ug/mL Ur Barbiturates Screen (ZBEXIG=975) Ur Tricyclics Screen (BTEHKK=002) Ur Phencyclidine Scrn (CUTOFF=25) Ur Amphetamine Screen (TPWUXR=863) U Methamphetamines Scrn (JCGXPB=335) U Benzodiazepines Scrn (IGRYCY=888) U Cocaine Metab Screen (BIIHBH=993) U Marijuana (THC) Screen (CUTOFF=50) Ethyl Alcohol 0.00 (0.00) gm% 05/19/19 Range/Units 08:20 WBC (4.23-9.07) K/mm3 RBC (4.63-6.08) M/mm3 Hgb (13.7-17.5) gm/L Hct (40.1-51.0) % MCV (79.0-92.2) fl MCH (25.7-32.2) pg MCHC (32.2-35.5) g/dl RDW Std Deviation (35.1-43.9) fL Plt Count (163-337) K/mm3 MPV (9.4-12.3) fl Neut % (Auto) (34.0-67.9) % Lymph % (Auto) (21.8-53.1) % [place] % (Auto) (5.3-12.2) % Eos % (Auto) (0.8-7.0) Baso % (Auto) (0.1-1.2) % Neut # (Auto) (1.78-5.38) K/mm3 Lymph # (Auto) (1.32-3.57) K/mm3 [place] # (Auto) (0.30-0.82) K/mm3 Eos # (Auto) (0.04-0.54) K/mm3 Baso # (Auto) (0.01-0.08) K/mm3 Sodium (136-145) mEq/L Potassium (3.5-5.1) mEq/L Chloride (98-107) mEq/L Carbon Dioxide (21-32) mEq/L Anion Gap (5-15) BUN (7-18) mg/dL Creatinine (0.7-1.3) mg/dL Est Cr Clr Drug Dosing mL/min Estimated GFR (MDRD) (>60) mL/min BUN/Creatinine Ratio (14-18) Glucose (74-106) mg/dL Calcium (8.5-10.1) mg/dL Magnesium (1.8-2.4) mg/dl Total Bilirubin (0.2-1.0) mg/dL AST (15-37) U/L ALT (16-63) U/L Alkaline Phosphatase (46-116) U/L Total Protein (6.4-8.2) g/dl Albumin (3.4-5.0) g/dl Globulin gm/dL Albumin/Globulin Ratio (1-2) Urine Opiates Screen Negative (YMLYQL=067) Ur Buprenorphine Scrn Negative (CUTOFF=10) Ur Oxycodone Screen Negative (LWW7MD=284) Urine Methadone Screen Negative (YVN9NF=425) Ur Propoxyphene Screen Negative (PAAIUP=815) Acetaminophen (10-30) ug/mL Ur Barbiturates Screen Negative (ZQAXPO=099) Ur Tricyclics Screen Presumptive positive H (BKXRNT=206) Ur Phencyclidine Scrn Negative (CUTOFF=25) Ur Amphetamine Screen Negative (GEDUEM=693) U Methamphetamines Scrn Negative (UWMDAG=450) U Benzodiazepines Scrn Negative (BEJFCR=259) U Cocaine Metab Screen Negative (LBXHMS=934) U Marijuana (THC) Screen Negative (CUTOFF=50) Ethyl Alcohol (0.00) gm% Meds: Medications Generic Name Dose Route Start Last Admin Trade Name Freq PRN Reason Stop Dose Admin Sodium Chloride 1,000 mls @ 999 mls/hr 05/19/19 08:00 05/19/19 08:15 Normal Saline IV 999 mls/hr ONETIME ZENON Administration Sodium Chloride 1,000 mls @ 999 mls/hr 05/19/19 10:15 Normal Saline IV ONETIME ZENON Magnesium Sulfate 2 gm/ Premix 50 mls @ 25 mls/hr 05/19/19 10:44 IV 05/19/19 12:43 ONETIME ONE Sodium Chloride 10 ml 05/19/19 07:56 05/19/19 08:16 Saline Flush FLUSH 10 ml ASDIRECTED PRN Administration Keep Vein Open Discontinued Medications Generic Name Dose Route Start Last Admin Trade Name Freq PRN Reason Stop Dose Admin Naloxone HCl 2 mg 05/19/19 08:04 05/19/19 08:14 Narcan IVPUSH 05/19/19 08:05 2 mg ONETIME ONE Administration Naloxone HCl 2 mg 05/19/19 08:25 05/19/19 08:32 Narcan IVPUSH 05/19/19 08:26 2 mg ONETIME ONE Administration Naloxone HCl 2 mg 05/19/19 08:50 05/19/19 09:19 Narcan IVPUSH 05/19/19 08:51 2 mg ONETIME ONE Administration - Re-Assessments/Exams Free Text/Narrative Re-Assessment/Exam: 05/19/19 10:15. Patient was given 1 L of fluid on arrival to ED he also was given Narcan 2 mg IV 3 over time. He may have had very slight improvement in mental status after the IV Narcan but did not immediately wake up to full alertness. Blood pressure initially in the 1 teens, he has had some instances of dropping down to the upper 90s systolic. With fluid he has been back above 100 systolic most of the time. Heart rate is gradually improved from 93 on arrival down to the 70s. His nurse tells me that a short time ago he did stand up at bedside to void. Labs did come back relatively normal. Urine drug screen positive for tricyclics only, blood alcohol negative. O2 sats of continued in the mid to upper 90s. Does not shown any sign of airway compromise. We did consult with poison control. They tell us that the effect of the Wellbutrin will last up to 24 hours , Zyprexa will peak at about 6 hours. Time of ingestion really unknown and also amount of each medication listed also unknown. The drowsiness from the Haldol is also expected to last in the range of 12-24 hours. Looking back at records I see that there was an ED admission April 14 only about 1 month ago where he presented to the ED with hallucinations after a short period of time in [facility] threatening people at [facility]. Looking at that record it appears that he was transferred to [facility] for further eval and treatment. Patient will be admitted to our ICU for further eval and treatment. Departure - Departure Time of Disposition: 10:15 Disposition: Admitted As Inpatient 66 Condition: Serious Clinical Impression: Multiple drug overdose Qualifiers: Encounter type: initial encounter Injury intent: undetermined intent Qualified Code(s): T50.904A - Poisoning by unspecified drugs, medicaments and biological substances, undetermined, initial encounter - Discharge Information ED Communication - Discussed Case With (1) Discussed Case With (1): Admitting Provider (mao Higgins to admit at around 10:15.) - My Orders Last 24 Hours: My Active Orders 05/19/19 07:56 EKG 12 Lead [EKG Documentation Completion] [RC] STAT Sodium Chloride 0.9% [Saline Flush] 10 ml FLUSH ASDIRECTED PRN Peripheral IV Insertion Adult [OM.PC] Stat 05/19/19 07:57 Peripheral IV Care [RC] . DIRECTED 05/19/19 08:00 Sodium Chloride 0.9% [Normal Saline] 1,000 ml IV ONETIME 05/19/19 10:15 Sodium Chloride 0.9% [Normal Saline] 1,000 ml IV ONETIME 05/19/19 10:29 Admission Status [Patient Status] [ADT] Routine - Assessment/Plan Last 24 Hours: My Active Orders 05/19/19 07:56 EKG 12 Lead [EKG Documentation Completion] [RC] STAT Sodium Chloride 0.9% [Saline Flush] 10 ml FLUSH ASDIRECTED PRN Peripheral IV Insertion Adult [OM.PC] Stat 05/19/19 07:57 Peripheral IV Care [RC] . DIRECTED 05/19/19 08:00 Sodium Chloride 0.9% [Normal Saline] 1,000 ml IV ONETIME 05/19/19 10:15 Sodium Chloride 0.9% [Normal Saline] 1,000 ml IV ONETIME 05/19/19 10:29 Admission Status [Patient Status] [ADT] Routine
[2019-05-19 08:39] LABS: ACETAMINOPHEN 0 ug/mL (10-30)
[2019-05-19] MEDS ORDERED: Magnesium Sulfate/Water 2 GM in Premix Bag 1 BAG IV ONE (10:44)
[2019-05-19] MEDS ORDERED: LORazepam 2 MG/ML SDV IVPUSH PRN ×2 (12:03→15:27)
[2019-05-19] MEDS ORDERED: Lactated Ringers 1,000 ML IV SCH (12:15)
[2019-05-19] MEDS ORDERED: Acetaminophen 325 MG Tab PO PRN (12:32)
--- NOTE | 2019-05-19 12:46 | PCM.HP ---
H&P History of Present Illness - General Date of Service: 05/19/19 Admit Problem/Dx: Admission Diagnosis/Problem Admission Diagnosis/Problem Drug overdose - History of Present Illness Initial Comments - Free Text/Narative: 43-year-old male found at the [facility] in the hallway unresponsive. EMS was able to get some history from him. He told EMS that he was "trying to kill himself" and took about 100 pills of Wellbutrin, Zyprexa, and Haldol. EMS did not enter his room to look for prescribed medications, but patient was recently known to be at [facility] psychiatric unit at the end of March. In the emergency room they were unable to get any additional significant history. He mumbled and was generally difficult to understand. Poison control was called by the ER staff and recommendation was to follow the patient for possible arrhythmias and QT prolongation. In the emergency room EKG done at 8 AM on May 19, 2019 showed a sinus rate of 93 bpm borderline prolonged QT interval of a QTC 483. Here in the ICU patient is difficult to arouse and when he did so woke up agitated and threatening. Patient fell right back to sleep. Patient is on a monitor tech at normal sinus rhythm. In the emergency room patient was given a total of 2 L bolus of normal saline. Narcan 2 mg IV 3 over time had some slight improvement. Urine drug screen was only positive for tricyclic antidepressants. Review of his emergency room visit on April 14, 2019 states that the patient has a history of schizophrenia diagnosed at 12 or 13 years of age. Patient was hospitalized at [facility] in July 2018 and transfer to a long-term facility where he stayed for 5 months. He was also hospitalized in in [place] in October or November race today for about 30 days. Patient states that after he was jailed he freaked out and Jennifer's knives at people. On the April 14, 2019 visit to the emergency room he was sent to [facility] in [place] psychiatric unit. In July 2018 patient was admitted to [facility]. Per old records patient was admitted to the [facility] behavioral health unit and the patient expressed delusional thoughts. He became more agitated and the [place] [employer] was called. He was taken down by 2 police officers and 3 security members. He received help her at all 10 mg, diphenhydramine 50 mg, and lorazepam 2 mg IM because the patient threatened to kill security officers when he got out of the hospital. The patient was positive for methamphetamine use at that time. Recent conversation by nursing with a friend of his states he was using methamphetamines up until 2 weeks ago. - Related Data Allergies/Adverse Reactions: Allergies Allergy/AdvReac Type Severity Reaction Status Date / Time No Known Allergies Allergy Verified 05/19/19 08:06 Home Medications: Home Meds . 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 Psychiatric History: Reports: Anxiety (untreated), Depression (untreated), Schizophrenia (untreated) Endocrine/Metabolic History: Reports: Obesity/BMI 30+ - Past Surgical History Dermatological Surgical History: Reports: Other (See Below) (Left arm abscess I & D) Social & Family History - Family History Family Medical History: Noncontributory - Tobacco Use Smoking Status *Q: Unknown Ever Smoked Tobacco Use Comment: patient lethargic - Caffeine Use Caffeine Use: Reports: Coffee, Soda, Tea - Living Situation & Occupation Living situation: Reports: Single, Other (Homeless) Occupation: Unemployed H&P Review of Systems - Review of Systems: Review Of Systems: Unable To Obtain Exam - Exam Exam: See Below - Vital Signs Vital Signs: Last Vital Signs Temp 96.2 F 05/19/19 11:03 Pulse 73 05/19/19 11:03 Resp 11 L 05/19/19 11:03 BP 121/88 05/19/19 11:03 Pulse Ox 99 05/19/19 11:03 Weight: 275 lb 12.8 oz - Exam General: Obtunded HEENT: Conjunctiva Clear, Mucosa Moist & Jarrell Lungs: Clear to Auscultation, Normal Respiratory Effort Cardiovascular: Regular Rate, Regular Rhythm GI/Abdominal Exam: Normal Bowel Sounds, Soft, Non-Tender, No Organomegaly, No Distention Extremities: Normal Inspection, Normal Range of Motion, Non-Tender, No Pedal Edema, Normal Capillary Refill Skin: Warm, Dry, Intact Neuro Extensive - Mental Status: Other (Responds when tapped on the sternum with flexor response and verbal aggression.) Psychiatric: Withdrawal Symptoms - Patient Data Lab Results Last 24 hrs: Laboratory Results - last 24 hr 05/19/19 05/19/19 05/19/19 Range/Units 08:09 08:09 08:09 WBC 3.04 L (4.23-9.07) K/mm3 RBC 4.65 (4.63-6.08) M/mm3 Hgb 14.2 D (13.7-17.5) gm/L Hct 41.7 (40.1-51.0) % MCV 89.7 (79.0-92.2) fl MCH 30.5 (25.7-32.2) pg MCHC 34.1 (32.2-35.5) g/dl RDW Std Deviation 45.3 H (35.1-43.9) fL Plt Count 206 (163-337) K/mm3 MPV 9.3 L (9.4-12.3) fl Neut % (Auto) 42.5 (34.0-67.9) % Lymph % (Auto) 40.5 (21.8-53.1) % [place] % (Auto) 11.8 (5.3-12.2) % Eos % (Auto) 4.9 (0.8-7.0) Baso % (Auto) 0.3 (0.1-1.2) % Neut # (Auto) 1.29 L (1.78-5.38) K/mm3 Lymph # (Auto) 1.23 L (1.32-3.57) K/mm3 [place] # (Auto) 0.36 (0.30-0.82) K/mm3 Eos # (Auto) 0.15 (0.04-0.54) K/mm3 Baso # (Auto) 0.01 (0.01-0.08) K/mm3 Sodium 139 (136-145) mEq/L Potassium 3.6 (3.5-5.1) mEq/L Chloride 106 (98-107) mEq/L Carbon Dioxide 25 (21-32) mEq/L Anion Gap 11.6 (5-15) BUN 18 (7-18) mg/dL Creatinine 1.1 (0.7-1.3) mg/dL Est Cr Clr Drug Dosing 102.42 mL/min Estimated GFR (MDRD) > 60 (>60) mL/min BUN/Creatinine Ratio 16.4 (14-18) Glucose 97 (74-106) mg/dL Calcium 8.5 (8.5-10.1) mg/dL Magnesium 1.8 (1.8-2.4) mg/dl Total Bilirubin 0.4 (0.2-1.0) mg/dL AST 80 H (15-37) U/L ALT 175 H (16-63) U/L Alkaline Phosphatase 43 L (46-116) U/L Total Protein 6.9 (6.4-8.2) g/dl Albumin 3.7 (3.4-5.0) g/dl Globulin 3.2 gm/dL Albumin/Globulin Ratio 1.2 (1-2) Urine Opiates Screen (CWVSWX=969) Ur Buprenorphine Scrn (CUTOFF=10) Ur Oxycodone Screen (WBK7CG=968) Urine Methadone Screen (ACR3RU=657) Ur Propoxyphene Screen (YOUUGY=721) Acetaminophen 0 L (10-30) ug/mL Ur Barbiturates Screen (HMLUZP=081) Ur Tricyclics Screen (KEBLER=420) Ur Phencyclidine Scrn (CUTOFF=25) Ur Amphetamine Screen (JGFMKP=897) U Methamphetamines Scrn (JDNUJR=674) U Benzodiazepines Scrn (AHWMCC=447) U Cocaine Metab Screen (AQOZEP=751) U Marijuana (THC) Screen (CUTOFF=50) Ethyl Alcohol 0.00 (0.00) gm% 05/19/19 Range/Units 08:20 WBC (4.23-9.07) K/mm3 RBC (4.63-6.08) M/mm3 Hgb (13.7-17.5) gm/L Hct (40.1-51.0) % MCV (79.0-92.2) fl MCH (25.7-32.2) pg MCHC (32.2-35.5) g/dl RDW Std Deviation (35.1-43.9) fL Plt Count (163-337) K/mm3 MPV (9.4-12.3) fl Neut % (Auto) (34.0-67.9) % Lymph % (Auto) (21.8-53.1) % [place] % (Auto) (5.3-12.2) % Eos % (Auto) (0.8-7.0) Baso % (Auto) (0.1-1.2) % Neut # (Auto) (1.78-5.38) K/mm3 Lymph # (Auto) (1.32-3.57) K/mm3 [place] # (Auto) (0.30-0.82) K/mm3 Eos # (Auto) (0.04-0.54) K/mm3 Baso # (Auto) (0.01-0.08) K/mm3 Sodium (136-145) mEq/L Potassium (3.5-5.1) mEq/L Chloride (98-107) mEq/L Carbon Dioxide (21-32) mEq/L Anion Gap (5-15) BUN (7-18) mg/dL Creatinine (0.7-1.3) mg/dL Est Cr Clr Drug Dosing mL/min Estimated GFR (MDRD) (>60) mL/min BUN/Creatinine Ratio (14-18) Glucose (74-106) mg/dL Calcium (8.5-10.1) mg/dL Magnesium (1.8-2.4) mg/dl Total Bilirubin (0.2-1.0) mg/dL AST (15-37) U/L ALT (16-63) U/L Alkaline Phosphatase (46-116) U/L Total Protein (6.4-8.2) g/dl Albumin (3.4-5.0) g/dl Globulin gm/dL Albumin/Globulin Ratio (1-2) Urine Opiates Screen Negative (VNJORT=768) Ur Buprenorphine Scrn Negative (CUTOFF=10) Ur Oxycodone Screen Negative (HET1DK=611) Urine Methadone Screen Negative (NNH4CC=665) Ur Propoxyphene Screen Negative (ESSZDQ=988) Acetaminophen (10-30) ug/mL Ur Barbiturates Screen Negative (USRQKF=153) Ur Tricyclics Screen Presumptive positive H (ALTDLC=926) Ur Phencyclidine Scrn Negative (CUTOFF=25) Ur Amphetamine Screen Negative (RGENUL=184) U Methamphetamines Scrn Negative (WORFUT=400) U Benzodiazepines Scrn Negative (RSEGXZ=272) U Cocaine Metab Screen Negative (DBDHAI=483) U Marijuana (THC) Screen Negative (CUTOFF=50) Ethyl Alcohol (0.00) gm% Result Diagrams: 06/26/19 08:09 05/19/19 08:09 EKG INTERPRETATION EKG Date: 05/19/19 Time: 12:20 Rhythm: NSR [place]: Normal P-Wave: Present QRS: Normal ST-T: Normal QT: Prolonged (QTc 484ms) Comparison: No Change (0800) EKG Interpretation Comments: No change from 8 AM EKG in the same day. Borderline prolonged QT interval. - Problem List (1) Suicidal behavior with attempted self-injury SNOMED Code(s): 690802678, 953979591 ICD Code: T14.91XA - SUICIDE ATTEMPT, INITIAL ENCOUNTER Status: Acute Current Visit: Yes (2) Multiple drug overdose SNOMED Code(s): 09799704 ICD Code: T50.901A - POISONING BY UNSP DRUG/MEDS/BIOL SUBST, ACCIDENTAL, INIT Status: Acute Current Visit: Yes Qualifiers: Encounter type: initial encounter Injury intent: undetermined intent Qualified Code(s): T50.904A - Poisoning by unspecified drugs, medicaments and biological substances, undetermined, initial encounter (3) Schizophrenia SNOMED Code(s): 20105451 ICD Code: F20.9 - SCHIZOPHRENIA, UNSPECIFIED Status: Acute Current Visit : No Problem List Initiated/Reviewed/Updated: Yes Orders Last 24hrs: Active Orders 24 hr Category Date Time Status Admission Status [Patient Status] [ADT] Routine ADT 05/19/19 10:29 Active EKG 12 Lead [EKG Documentation Completion] [RC] ROUTINE Care 05/19/19 15:00 Active EKG Documentation Completion [RC] ASDIRECTED Care 05/19/19 12:17 Active Oxygen Therapy [RC] PRN Care 05/19/19 12:32 Active Suicide Precautions [RC] Q15M Care 05/19/19 12:04 Active VTE/DVT Education [RC] PER UNIT ROUTINE Care 05/19/19 12:32 Active Vital Signs [RC] Q4H Care 05/19/19 12:32 Active Consult to Case Management/Regulatory Affairs Manager [CONS] Cons 05/19/19 11:13 Active Routine Clear Liquid Diet [DIET] Diet 05/19/19 Dinner Active CBC WITH AUTO DIFF [HEME] AM Lab 05/20/19 05:11 Ordered COMPREHENSIVE METABOLIC PN,CMP [CHEM] AM Lab 05/20/19 05:11 Ordered MAGNESIUM [CHEM] AM Lab 05/20/19 05:11 Ordered Acetaminophen [Tylenol] Med 05/19/19 12:32 Active 650 mg PO Q4H PRN LORazepam [Ativan] Med 05/19/19 12:03 Active 2 mg IVPUSH Q4H PRN Lactated Ringers [Ringers, Lactated] 1,000 ml Med 05/19/19 12:15 Active IV ASDIRECTED Magnesium Sulfate/Water [Magnesium Sulfate in Water Med 05/19/19 10:44 Active Premix] 2 gm Premix Bag 1 bag IV ONETIME Sodium Chloride 0.9% [Normal Saline] 1,000 ml Med 05/19/19 08:00 Active IV ONETIME Sodium Chloride 0.9% [Normal Saline] 1,000 ml Med 05/19/19 10:15 Active IV ONETIME Sodium Chloride 0.9% [Saline Flush] Med 05/19/19 07:56 Active 10 ml FLUSH ASDIRECTED PRN One To One Therapy [BH] Routine Oth 05/19/19 12:05 Ordered Peripheral IV Insertion Adult [OM.PC] Stat Oth 05/19/19 07:56 Ordered Resuscitation Status Routine Resus Stat 05/19/19 12:32 Ordered EKG 12 Lead [EK] Routine Ther 05/19/19 12:15 Ordered Medication Orders Acetaminophen (Tylenol) 650 mg PO Q4H PRN PRN Reason: Pain (Mild 1-3)/fever Sodium Chloride (Normal Saline) 1,000 mls @ 999 mls/hr IV ONETIME ZENON Last Admin: 05/19/19 08:15 Dose: 999 mls/hr Sodium Chloride (Normal Saline) 1,000 mls @ 999 mls/hr IV ONETIME ZENON Magnesium Sulfate 2 gm/ Premix 50 mls @ 25 mls/hr IV ONETIME ONE Stop: 05/19/19 12:43 Last Admin: 05/19/19 11:28 Dose: 25 mls/hr Lactated Ringer's (Ringers, Lactated) 1,000 mls @ 100 mls/hr IV ASDIRECTED ZENON Last Admin: 05/19/19 12:35 Dose: 100 mls/hr Lorazepam (Ativan) 2 mg IVPUSH Q4H PRN PRN Reason: Seizures Sodium Chloride (Saline Flush) 10 ml FLUSH ASDIRECTED PRN PRN Reason: Keep Vein Open Last Admin: 05/19/19 08:16 Dose: 10 ml Assessment/Plan Comment:: Assessment * 43-year-old male with known history of schizophrenia found after taking "100" tablets of Wellbutrin, Zyprexa, and Haldol [place] [facility] * Patient called a friend around 6:00 this morning and told her he was going to commit suicide. * Patient is currently obtunded and hard to arouse. 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 * Past history of methamphetamine abuse Plan * Monitor patient in the ICU with one-on-one nursing * When patient is stable he will be transferred to the first available psychiatric hospital. * IV fluids and serial EKGs to monitor for QT prolongation and other EKG changes * Patient is a full code
--- NOTE | 2019-05-19 15:30 | PCM.SN ---
- Free Text/Narrative Note: Laura from poison control called to check on patient. She states that as patient withdraws from Wellbutrin he may become violent and agitated. She recommended Ativan titrated to keep patient sedated. She states that he may need to be sedated to the point of intubation and this is not an unusual occurrence secondary to withdrawal from Wellbutrin, Zyprexa, and or Haldol.
--- NOTE | 2019-05-19 16:10 | PCM.DCSUM1 ---
Discharge Summary - Hospital Course HPI Initial Comments: 43-year-old male found at the [facility] in the hallway unresponsive. EMS was able to get some history from him. He told EMS that he was "trying to kill himself" and took about 100 pills of Wellbutrin, Zyprexa, and Haldol. EMS did not enter his room to look for prescribed medications, but patient was recently known to be at [facility] psychiatric unit at the end of March. In the emergency room they were unable to get any additional significant history. He mumbled and was generally difficult to understand. Poison control was called by the ER staff and recommendation was to follow the patient for possible arrhythmias and QT prolongation. In the emergency room EKG done at 8 AM on May 19, 2019 showed a sinus rate of 93 bpm borderline prolonged QT interval of a QTC 483. Here in the ICU patient is difficult to arouse and when he did so woke up agitated and threatening. Patient fell right back to sleep. Patient is on a kitchen designer at normal sinus rhythm. In the emergency room patient was given a total of 2 L bolus of normal saline. Narcan 2 mg IV 3 over time had some slight improvement. Urine drug screen was only positive for tricyclic antidepressants. Review of his emergency room visit on April 14, 2019 states that the patient has a history of schizophrenia diagnosed at 12 or 13 years of age. Patient was hospitalized at [facility] in July 2018 and transfer to a long-term facility where he stayed for 5 months. He was also hospitalized in [facility] in [place] in October or November race today for about 30 days. Patient states that after he was jailed he freaked out and Jennifer's knives at people. On the April 14, 2019 visit to the emergency room he was sent to [facility] in [place] psychiatric unit. In July 2018 patient was admitted to [facility]. Per old records patient was admitted to the [facility] behavioral health unit and the patient expressed delusional thoughts. He became more agitated and the [place] [employer] was called. He was taken down by 2 police officers and 3 security members. He received help her at all 10 mg, diphenhydramine 50 mg, and lorazepam 2 mg IM because the patient threatened to kill security officers when he got out of the hospital. The patient was positive for methamphetamine use at that time. Recent conversation by nursing with a friend of his states he was using methamphetamines up until 2 weeks ago. Brief History: after discussing the case with poison control it was determined that the patient needed more than our facility can give him. I spoke with Dr. Canas at the intensive care unit in [facility] who accepted the patient for transfer. - Discharge Data Discharge Date: 05/19/19 Discharge Disposition: DC/Tfer to Acute Hospital 02 Condition: Good - Discharge Diagnosis/Problem(s) (1) Suicidal behavior with attempted self-injury SNOMED Code(s): 523719940, [id number] ICD Code: T14.91XA - SUICIDE ATTEMPT, INITIAL ENCOUNTER Status: Acute Current Visit: Yes (2) Multiple drug overdose SNOMED Code(s): 41983641 ICD Code: T50.901A - POISONING BY UNSP DRUG/MEDS/BIOL SUBST, ACCIDENTAL, INIT Status: Acute Current Visit: Yes Qualifiers: Encounter type: initial encounter Injury intent: undetermined intent Qualified Code(s): T50.904A - Poisoning by unspecified drugs, medicaments and biological substances, undetermined, initial encounter (3) Schizophrenia SNOMED Code(s): 10657235 ICD Code: F20.9 - SCHIZOPHRENIA, UNSPECIFIED Status: Acute Current Visit : No - Patient Summary/Data Consults: Consultations 05/19/19 11:13 Consult to Case Management/Statistical Programmer Analyst [CONS] Routine - Patient Instructions Diet: NPO Driving: Do Not Drive - Discharge Plan *PRESCRIPTION DRUG MONITORING PROGRAM REVIEWED*: Not Applicable *COPY OF PRESCRIPTION DRUG MONITORING REPORT IN PATIENT MATHEW: Not Applicable Home Medications: Home Meds Lactated Ringers [Ringers, Lactated] 100 ml IV ASDIRECTED bag 05/19/19 [Rx] Oxygen Therapy Mode: Room Air Forms: ED Department Discharge Referrals: PCP,None [Primary Care Provider] - - Discharge Summary/Plan Comment DC Time >30 min.: Yes Discharge Summary/Plan Comment: patient be transferred to [facility] to the ICU via ambulance. Accepting physician is Dr. Canas. - Patient Data Vitals - Most Recent: Last Vital Signs Temp 97.4 F 05/19/19 15:00 Pulse 70 05/19/19 15:00 Resp 10 L 05/19/19 15:00 BP 127/88 05/19/19 15:00 Pulse Ox 99 05/19/19 15:00 Weight - Most Recent: 275 lb 12.8 oz Lab Results - Last 24 hrs: Laboratory Results - last 24 hr 05/19/19 05/19/19 05/19/19 Range/Units 08:09 08:09 08:09 WBC 3.04 L (4.23-9.07) K/mm3 RBC 4.65 (4.63-6.08) M/mm3 Hgb 14.2 D (13.7-17.5) gm/L Hct 41.7 (40.1-51.0) % MCV 89.7 (79.0-92.2) fl MCH 30.5 (25.7-32.2) pg MCHC 34.1 (32.2-35.5) g/dl RDW Std Deviation 45.3 H (35.1-43.9) fL Plt Count 206 (163-337) K/mm3 MPV 9.3 L (9.4-12.3) fl Neut % (Auto) 42.5 (34.0-67.9) % Lymph % (Auto) 40.5 (21.8-53.1) % [place] % (Auto) 11.8 (5.3-12.2) % Eos % (Auto) 4.9 (0.8-7.0) Baso % (Auto) 0.3 (0.1-1.2) % Neut # (Auto) 1.29 L (1.78-5.38) K/mm3 Lymph # (Auto) 1.23 L (1.32-3.57) K/mm3 [place] # (Auto) 0.36 (0.30-0.82) K/mm3 Eos # (Auto) 0.15 (0.04-0.54) K/mm3 Baso # (Auto) 0.01 (0.01-0.08) K/mm3 Sodium 139 (136-145) mEq/L Potassium 3.6 (3.5-5.1) mEq/L Chloride 106 (98-107) mEq/L Carbon Dioxide 25 (21-32) mEq/L Anion Gap 11.6 (5-15) BUN 18 (7-18) mg/dL Creatinine 1.1 (0.7-1.3) mg/dL Est Cr Clr Drug Dosing 102.42 mL/min Estimated GFR (MDRD) > 60 (>60) mL/min BUN/Creatinine Ratio 16.4 (14-18) Glucose 97 (74-106) mg/dL Calcium 8.5 (8.5-10.1) mg/dL Magnesium 1.8 (1.8-2.4) mg/dl Total Bilirubin 0.4 (0.2-1.0) mg/dL AST 80 H (15-37) U/L ALT 175 H (16-63) U/L Alkaline Phosphatase 43 L (46-116) U/L Total Protein 6.9 (6.4-8.2) g/dl Albumin 3.7 (3.4-5.0) g/dl Globulin 3.2 gm/dL Albumin/Globulin Ratio 1.2 (1-2) Urine Opiates Screen (PROFTP=906) Ur Buprenorphine Scrn (CUTOFF=10) Ur Oxycodone Screen (WLD6NE=077) Urine Methadone Screen (HVH2PI=282) Ur Propoxyphene Screen (FMHINF=231) Acetaminophen 0 L (10-30) ug/mL Ur Barbiturates Screen (TCSFCG=692) Ur Tricyclics Screen (GITHHC=864) Ur Phencyclidine Scrn (CUTOFF=25) Ur Amphetamine Screen (RGDRNZ=319) U Methamphetamines Scrn (RGYGOS=274) U Benzodiazepines Scrn (XWXPXI=280) U Cocaine Metab Screen (HPPKHR=237) U Marijuana (THC) Screen (CUTOFF=50) Ethyl Alcohol 0.00 (0.00) gm% 05/19/19 Range/Units 08:20 WBC (4.23-9.07) K/mm3 RBC (4.63-6.08) M/mm3 Hgb (13.7-17.5) gm/L Hct (40.1-51.0) % MCV (79.0-92.2) fl MCH (25.7-32.2) pg MCHC (32.2-35.5) g/dl RDW Std Deviation (35.1-43.9) fL Plt Count (163-337) K/mm3 MPV (9.4-12.3) fl Neut % (Auto) (34.0-67.9) % Lymph % (Auto) (21.8-53.1) % [place] % (Auto) (5.3-12.2) % Eos % (Auto) (0.8-7.0) Baso % (Auto) (0.1-1.2) % Neut # (Auto) (1.78-5.38) K/mm3 Lymph # (Auto) (1.32-3.57) K/mm3 [place] # (Auto) (0.30-0.82) K/mm3 Eos # (Auto) (0.04-0.54) K/mm3 Baso # (Auto) (0.01-0.08) K/mm3 Sodium (136-145) mEq/L Potassium (3.5-5.1) mEq/L Chloride (98-107) mEq/L Carbon Dioxide (21-32) mEq/L Anion Gap (5-15) BUN (7-18) mg/dL Creatinine (0.7-1.3) mg/dL Est Cr Clr Drug Dosing mL/min Estimated GFR (MDRD) (>60) mL/min BUN/Creatinine Ratio (14-18) Glucose (74-106) mg/dL Calcium (8.5-10.1) mg/dL Magnesium (1.8-2.4) mg/dl Total Bilirubin (0.2-1.0) mg/dL AST (15-37) U/L ALT (16-63) U/L Alkaline Phosphatase (46-116) U/L Total Protein (6.4-8.2) g/dl Albumin (3.4-5.0) g/dl Globulin gm/dL Albumin/Globulin Ratio (1-2) Urine Opiates Screen Negative (YTIMDZ=283) Ur Buprenorphine Scrn Negative (CUTOFF=10) Ur Oxycodone Screen Negative (FUJ6MS=818) Urine Methadone Screen Negative (LGT6YF=183) Ur Propoxyphene Screen Negative (ROMPWF=415) Acetaminophen (10-30) ug/mL Ur Barbiturates Screen Negative (WQVQCP=245) Ur Tricyclics Screen Presumptive positive H (VUAYZH=760) Ur Phencyclidine Scrn Negative (CUTOFF=25) Ur Amphetamine Screen Negative (HQFOMI=262) U Methamphetamines Scrn Negative (INMDJX=605) U Benzodiazepines Scrn Negative (VYSZGB=709) U Cocaine Metab Screen Negative (EWSHAW=854) U Marijuana (THC) Screen Negative (CUTOFF=50) Ethyl Alcohol (0.00) gm% Med Orders - Current: Current Medications Acetaminophen (Tylenol) 650 mg PO Q4H PRN PRN Reason: Pain (Mild 1-3)/fever Lactated Ringer's (Ringers, Lactated) 1,000 mls @ 100 mls/hr IV ASDIRECTED ZENON Last Admin: 05/19/19 12:35 Dose: 100 mls/hr Lorazepam (Ativan) 2 mg IVPUSH Q4H PRN PRN Reason: Seizures Lorazepam (Ativan) 2 mg IVPUSH Q1H PRN PRN Reason: Agitation Sodium Chloride (Saline Flush) 10 ml FLUSH ASDIRECTED PRN PRN Reason: Keep Vein Open Last Admin: 05/19/19 08:16 Dose: 10 ml Discontinued Medications Sodium Chloride (Normal Saline) 1,000 mls @ 999 mls/hr IV ONETIME ZENON Last Admin: 05/19/19 08:15 Dose: 999 mls/hr Sodium Chloride (Normal Saline) 1,000 mls @ 999 mls/hr IV ONETIME ZENON Magnesium Sulfate 2 gm/ Premix 50 mls @ 25 mls/hr IV ONETIME ONE Stop: 05/19/19 12:43 Last Admin: 05/19/19 11:28 Dose: 25 mls/hr Naloxone HCl (Narcan) 2 mg IVPUSH ONETIME ONE Stop: 05/19/19 08:05 Last Admin: 05/19/19 08:14 Dose: 2 mg Naloxone HCl (Narcan) 2 mg IVPUSH ONETIME ONE Stop: 05/19/19 08:26 Last Admin: 05/19/19 08:32 Dose: 2 mg Naloxone HCl (Narcan) 2 mg IVPUSH ONETIME ONE Stop: 05/19/19 08:51 Last Admin: 05/19/19 09:19 Dose: 2 mg
== END 2019-05-19 18:32 | DRG 918 ==
LOC: JD.ED 07:46 → JD.ICU 10:34
PROVIDERS: ADMIT Family Medicine; ATTEND Family Medicine
DX: T43.292A Poisoning by other antidepressants, intentional self-harm, initial encounter (principal); T43.592A Poisoning by other antipsychotics and neuroleptics, intentional self-harm, initial encounter; T43.4X2A Poisoning by butyrophenone and thiothixene neuroleptics, intentional self-harm, initial encounter; I45.81 Long QT syndrome; F20.9 Schizophrenia, unspecified; F41.9 Anxiety disorder, unspecified; F32.9 Major depressive disorder, single episode, unspecified; E66.9 Obesity, unspecified; Z68.27 Body mass index [BMI] 27.0-27.9, adult
CPT/HCPCS: 36415; 80053; 80306; 83735; 85025; 93005; 96361; 96374; 96376; 99285-25; G0480; J2310; J3475; J7040; J7120